=== PATIENT | male | born 1980 | race Caucasian/White ===

== ENCOUNTER 2020-04-11 00:10 | Emergency (ER) | payer BC ==
[~2020-04-11] VITALS: Ht 180.3 cm; Wt 81.6 kg
== END 2020-04-11 01:31 | disposition home or self-care (01) ==
LOC: ED 00:10
DX: S51.811A Laceration without foreign body of right forearm, initial encounter (principal); W26.9XXA Contact with unspecified sharp object(s), initial encounter
CPT/HCPCS: 12002; 90471; 90715; 99282-25